=== PATIENT | male | born 1970 | race Caucasian/White ===

== ENCOUNTER 2017-01-26 08:13 | Emergency (ER) | payer MEDICARE ==
[2017-01-26 08:27] VITALS: O2SAT 92
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
[2017-01-26] MEDS ORDERED: TORAdol 30 mg Injection IV ONE (08:55)
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
[2017-01-26 09:58] LABS: VBG BASE EXCESS 1.5 (-2.0-2.0); VBG CARBOXYHEMOGLOBIN 1.6 % T HGB (0.0-6.9); VBG HCO3- 27.7 meq/L (22-28); VBG HEMOGLOBIN 16.3; VBG O2 SATURATION 75.1 (95-100); VBG pH 7.37 (7.32-7.42)
[2017-01-26] MEDS ORDERED: TORAdol 30 mg Injection ONE (10:00)
[2017-01-26 10:06] VITALS: BP 111/72; PULSE 103
[2017-01-26 10:10] LABS: BASOPHIL % 0.3 % (0.0-0.4); Eosinophil % 5.6 % (0.00-5.0); Granulocytes % 60.5 % (36.0-66.0); Lymphocytes % 27.1 % (24.0-44.0); Mean Cell Volume 84.4 fl (78-100); Mean Corpuscular Hemoglobin 28.4 pg (26-32); Mean Platelet Volume 11.2 fl (6-9.5); Monocytes % 6.5 % (0.0-12.0); Platelet Count 253 K/mm3 (150-450); Red Cell Distribution Width 13.4 % (11.5-14.0); White Blood Count 11.5 K/mm3 (4.0-10.5)
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
[2017-01-26 10:28] LABS: INR 0.88 (0.8-3.0); PROTIME 9.9 SECONDS (8.83-12.87)
[2017-01-26 10:39] LABS: ETHYL ALCOHOL 0.199 % (0.00-0.01)
[2017-01-26 10:40] LABS: ALBUMIN 4.2 g/dL (3.4-5.0); ALKALINE PHOSPHATASE 140 U/L (46-116); ANION GAP 15.3 MEQ/L (5-15); BLOOD UREA NITROGEN 10 mg/dL (9-20); CHLORIDE 101 mEq/L (98-107); Carbon Dioxide 28.8 mEq/L (21-32); Glucose 104 MG/DL (70-110); Potassium 3.8 mEq/L (3.5-5.1); SGOT/AST 62 U/L (15-37); SGPT/ALT 52 U/L (12-78); SODIUM 141 mEq/L (136-145); Total Protein 8.2 gm/dL (6.4-8.2)
== END 2017-01-26 10:25 | disposition left against medical advice (07) ==
LOC: ED 08:13
DX: S70.11XA Contusion of right thigh, initial encounter (principal); V27.0XXA Motorcycle driver injured in collision with fixed or stationary object in nontraffic accident, initial encounter; M79.651 Pain in right thigh; M79.671 Pain in right foot; Z79.899 Other long term (current) drug therapy
CPT/HCPCS: 96374; 99284; 36000; 85610; 85730; 36415; 82550; 85025; 80053; 71010; 73630; 73590; 73552; 70450; 72125; 82805; G0481; J1885

== ENCOUNTER 2017-01-28 18:47 | Emergency (ER) | payer MEDICARE ==
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
[2017-01-28] MEDS ORDERED: Adacel Vial IM ONE (19:16)
[2017-01-28] MEDS: Adacel Vial IM ONE ×2 (19:18→19:21)
[2017-01-28 19:39] LABS: BASOPHIL % 0.3 % (0.0-0.4); Eosinophil % 5.5 % (0.00-5.0); Granulocytes % 68.4 % (36.0-66.0); Lymphocytes % 20.4 % (24.0-44.0); Mean Cell Volume 84.2 fl (78-100); Mean Corpuscular Hemoglobin 28.5 pg (26-32); Mean Platelet Volume 11.2 fl (6-9.5); Monocytes % 5.4 % (0.0-12.0); Platelet Count 222 K/mm3 (150-450); Red Blood Count 5.26 M/mm3 (4.1-5.6); Red Cell Distribution Width 13.5 % (11.5-14.0); White Blood Count 9.8 K/mm3 (4.0-10.5)
[2017-01-28 19:56] LABS: ETHYL ALCOHOL 0.172 % (0.00-0.01)
[2017-01-28 19:57] LABS: ALBUMIN 3.9 g/dL (3.4-5.0); ALKALINE PHOSPHATASE 126 U/L (46-116); ANION GAP 17.4 MEQ/L (5-15); BLOOD UREA NITROGEN 6 mg/dL (9-20); CHLORIDE 101 mEq/L (98-107); Carbon Dioxide 26.3 mEq/L (21-32); Glucose 103 MG/DL (70-110); Potassium 3.6 mEq/L (3.5-5.1); SGOT/AST 59 U/L (15-37); SGPT/ALT 66 U/L (12-78); SODIUM 141 mEq/L (136-145); Total Protein 7.6 gm/dL (6.4-8.2)
[2017-01-28 19:59] LABS: ACETAMINOPHEN < 2.0 ug/ml (10-30)
[2017-01-28 21:09] VITALS: O2SAT 97
[2017-01-28] MEDS ORDERED: BACIGUENT PACKET ONE (21:12)
[2017-01-28 21:24] VITALS: BP 150/88; PULSE 88
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
== END 2017-01-28 21:24 | disposition home or self-care (01) ==
LOC: ED 18:47
DX: F10.920 Alcohol use, unspecified with intoxication, uncomplicated (principal); S60.511A Abrasion of right hand, initial encounter; S80.11XD Contusion of right lower leg, subsequent encounter; Z79.899 Other long term (current) drug therapy
CPT/HCPCS: 93041; 99283; 36415; 83735; 80307 ×2; 85025; 80053; 73130; G0481 ×2; 90715; 99284; A9270-GY

== ENCOUNTER 2017-01-29 21:58 | Emergency (ER) | payer MEDICARE ==
[2017-01-29] MEDS ORDERED: BABY ASPIRIN 81 MG CHEW PO ONE (22:06)
[2017-01-29] MEDS ORDERED: Nitrostat 0.4 MG (ED) SL ONE ×2 (22:06→22:34)
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
[2017-01-29] MEDS ORDERED: Sodium Chloride 0.9% 1000 ML 1,000 ML IV SCH (22:15)
[2017-01-29 22:28] LABS: BASOPHIL % 0.4 % (0.0-0.4); Eosinophil % 4.5 % (0.00-5.0); Granulocytes % 61.9 % (36.0-66.0); Lymphocytes % 26.8 % (24.0-44.0); Mean Cell Volume 84.9 fl (78-100); Mean Corpuscular Hemoglobin 28.9 pg (26-32); Mean Platelet Volume 10.6 fl (6-9.5); Monocytes % 6.4 % (0.0-12.0); Platelet Count 185 K/mm3 (150-450); Red Blood Count 4.85 M/mm3 (4.1-5.6); Red Cell Distribution Width 13.6 % (11.5-14.0); White Blood Count 10.4 K/mm3 (4.0-10.5)
[2017-01-29] MEDS ORDERED: BABY ASPIRIN 81 MG CHEW ONE (22:33)
[2017-01-29] MEDS ORDERED: Sodium Chloride 0.9% 1000 ML 1,000 ML ONE (22:34)
[2017-01-29 22:47] LABS: INR 0.91 (0.8-3.0); PROTIME 10.3 SECONDS (8.83-12.87)
[2017-01-29 22:50] LABS: PTT 21.6 SECONDS (24.1-36.1)
[2017-01-29 23:02] LABS: ALBUMIN 3.6 g/dL (3.4-5.0); ALKALINE PHOSPHATASE 109 U/L (46-116); ANION GAP 14.4 MEQ/L (5-15); BLOOD UREA NITROGEN 8 mg/dL (9-20); CHLORIDE 101 mEq/L (98-107); Carbon Dioxide 27.1 mEq/L (21-32); Glucose 114 MG/DL (70-110); LIPASE 111 U/L (73-393); MAGNESIUM 1.6 mg/dL (1.8-2.4); Potassium 3.8 mEq/L (3.5-5.1); SGOT/AST 43 U/L (15-37); SGPT/ALT 56 U/L (12-78); SODIUM 139 mEq/L (136-145); Total Protein 6.9 gm/dL (6.4-8.2)
[2017-01-29 23:24] LABS: ADD URINE CULTURE? NO (NO); Bilirubin NEGATIVE (NEGATIVE); Blood NEGATIVE Ery/ul (0-5); COMPLETE URINE MICROSCOPIC? NO; Collection Type CLEAN CATCH; Glucose NEGATIVE (NEGATIVE); Leukocyte Esterase NEGATIVE (NEGATIVE)
[2017-01-29] MEDS ORDERED: Magnesium 1 Gm / 100 Ml D5W*** 100 ML IV ONE (23:40)
[2017-01-29] MEDS ORDERED: Heparin 5000 UNITS/0.5 ML (HIGH RISK MED) IV ONE (23:42)
[2017-01-29] MEDS ORDERED: Heparin 25,000 units/D5W 250ML PREMIX 25,000 UNITS/250 ML BAG IV SCH (23:45)
[2017-01-30] MEDS ORDERED: Phenergan 25 MG INJ IV ONE (00:13)
[2017-01-30] MEDS ORDERED: Hydromorphone 1 mg/ml Ampule IV ONE (00:13)
[2017-01-30 00:14] VITALS: O2SAT 95
[2017-01-30] MEDS ORDERED: Heparin 5000 UNITS/0.5 ML (HIGH RISK MED) ONE (00:17)
[2017-01-30] MEDS ORDERED: MAG-OX 400 ONE (00:17)
[2017-01-30] MEDS ORDERED: Hydromorphone 1 mg/ml Ampule ONE (00:17)
[2017-01-30] MEDS ORDERED: Magnesium 1 Gm / 100 Ml D5W*** 100 ML IV ONE (00:18)
[2017-01-30] MEDS ORDERED: Phenergan 25 MG INJ ONE (00:23)
[2017-01-30 00:52] VITALS: BP 137/91; PULSE 106
--- NOTE | 2017-01-30 08:03 | XRAY ---
Indication: Pain. Comparison: January 26, 2017. Portable apical lordotic chest again demonstrates normal heart and lungs. Bony thorax intact. No new/acute findings.
--- NOTE | 2017-01-30 08:06 | XRAY ---
Indication: Right lower extremity edema. Two-dimensional sonogram and color Doppler imaging of the major venous vessels of the right leg was performed. Comparison: January 18, 2014. There is now occluding deep vein thrombosis in the popliteal, posterior tibial, and peroneal veins. Remaining visualized common femoral, superficial femoral, and greater saphenous veins are patent. Impression: New occluding DVT in the popliteal, posterior tibial, and peroneal veins. Comment: Preliminary report was given.
[2017-01-30] MEDS ORDERED: MAG-OX 400 PO SCH (10:00)
== END 2017-01-30 01:35 | disposition short-term general hospital (02) ==
LOC: ED 21:58
DX: I82.401 Acute embolism and thrombosis of unspecified deep veins of right lower extremity (principal); R07.9 Chest pain, unspecified; R06.00 Dyspnea, unspecified; E83.42 Hypomagnesemia; I50.9 Heart failure, unspecified; I10 Essential (primary) hypertension; J44.9 Chronic obstructive pulmonary disease, unspecified; K21.9 Gastro-esophageal reflux disease without esophagitis; F41.9 Anxiety disorder, unspecified; F32.9 Major depressive disorder, single episode, unspecified; M79.89 Other specified soft tissue disorders; Z79.899 Other long term (current) drug therapy
CPT/HCPCS: 36000; 36415; 71010; 80053; 80307; 81002; 82150; 83690; 83735; 83880; 84484; 85025; 85610; 85730; 93005; 93041; 93971; 96360; 96361; 96365; 96367; 96374; 96375; 99285; J1170; J1644; J2550; J3475; A9270-GY

== ENCOUNTER 2017-05-27 16:24 | Emergency (ER) | payer MEDICARE ==
[2017-05-27] MEDS ORDERED: Ativan 1 MG PO ONE (16:47)
[2017-05-27] MEDS ORDERED: VITAMIN B-1 100 MG PO ONE (16:47)
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
[2017-05-27 17:00] LABS: Mean Cell Volume 87.3 fl (78-100); Mean Corpuscular Hemoglobin 28.9 pg (26-32); Mean Platelet Volume 10.4 fl (6-9.5); Platelet Count 233 K/mm3 (150-450); Red Blood Count 4.71 M/mm3 (4.1-5.6); Red Cell Distribution Width 13.3 % (11.5-14.0); White Blood Count 10.7 K/mm3 (4.0-10.5)
[2017-05-27 17:07] LABS: BASOPHIL % 0.4 % (0.0-0.4); Eosinophil % 1.7 % (0.00-5.0); Granulocytes % 70.3 % (36.0-66.0); Lymphocytes % 21.8 % (24.0-44.0); Monocytes % 5.8 % (0.0-12.0)
[2017-05-27 17:14] LABS: ALBUMIN 4.2 g/dL (3.4-5.0); ALKALINE PHOSPHATASE 80 U/L (46-116); ANION GAP 12.9 MEQ/L (5-15); BLOOD UREA NITROGEN 12 mg/dL (9-20); CHLORIDE 97 mEq/L (98-107); Carbon Dioxide 27.5 mEq/L (21-32); ETHYL ALCOHOL < 0.010 % (0.00-0.01); Glucose 121 MG/DL (70-110); Potassium 4.1 mEq/L (3.5-5.1); SGOT/AST 30 U/L (15-37); SGPT/ALT 41 U/L (12-78); SODIUM 133 mEq/L (136-145); Total Protein 7.5 gm/dL (6.4-8.2)
[2017-05-27 17:15] LABS: ACETAMINOPHEN < 2.0 ug/ml (10-30)
[2017-05-27] MEDS ORDERED: Ativan 1 MG ONE (17:16)
[2017-05-27 23:40] VITALS: BP 114/82; PULSE 82; O2SAT 97
== END 2017-05-27 23:40 ==
LOC: ED 16:24
DX: F32.9 Major depressive disorder, single episode, unspecified (principal); R44.0 Auditory hallucinations; R44.1 Visual hallucinations; Z79.899 Other long term (current) drug therapy
CPT/HCPCS: 99285; 93005; 36415; 80178; 80307 ×2; 85025; 80053; G0481 ×2; 90791; 96372; Q3014; A9270-GY

== ENCOUNTER 2017-05-28 02:15 | Emergency (ER) | payer MEDICARE ==
[2017-05-28 02:33] VITALS: BP 145/90; PULSE 78; O2SAT 96
--- NOTE | 2017-05-28 02:48 | ERPHSYRPT ---
- History of Present Illness Time Seen by Provider: 05/28/17 02:40 Source: patient, police Exam Limitations: no limitations Patient Subjective Stated Complaint: states hearing voices. feels like he hears kids in the [place] talking. brought here by police.. he called them.. denies homicidal or suicidal thoughts. states needs to go somewhere Triage Nursing Assessment: alert and oreinted acting appropriately at this time.. alert and oriented x3. deneis any new physical complaints. staets wants help. cooperastive at this time. Physician History: 47 y/o male comes back to the ER with complaints of hearing voices thinking that someone is making noise upstairs. Upon arrival by police, there was no noise and no holes in the ceiling. Pt denies any suicide or homicidal ideation. Pt was seen in the ER yesterday and was discharged home after being evaluated by tele psych to be seen as an outpatient. Pt denies any alcohol or illicit drug use. Timing/Duration: today Severity of Symptoms-Max: none Severity of Symptoms-Current: none Associated Symptoms: denies symptoms Previous symptoms: same symptoms as today Allergies/Adverse Reactions: haloperidol [From Haldol] Allergy (Mild, Verified 05/28/17 02:33) haloperidol lactate [From Haldol] Allergy (Mild, Verified 05/28/17 02:33) Home Medications: Amitriptyline HCl 100 mg PO BID 05/15/15 [History] Atenolol 100 mg PO BID 01/26/17 [History] Apixaban [Eliquis] 5 mg PO BID 05/27/17 [History] Famotidine 20 mg [Pepcid 20 MG] 20 mg PO BID 05/27/17 [History] Fluticasone/Vilanterol [Breo Ellipta 100-25 Mcg INH] 1 each IH DAILY 05/27/17 [ History] Furosemide 80 mg PO BID 05/27/17 [History] Tizanidine HCl 4 mg [Zanaflex 4 MG] 4 mg PO HS 05/27/17 [History] Hx Tetanus, Diphtheria Vaccination/Date Given: Yes (UP TO DATE) Hx Influenza Vaccination/Date Given: No Hx Pneumococcal Vaccination/Date Given: No Immunizations Up to Date: Yes - Past Medical History Pertinent Past Medical History: Yes Neurological History: No Pertinent History ENT History: No Pertinent History Cardiac History: Arrhythmia Respiratory History: CHF, COPD Endocrine Medical History: No Pertinent History, Diabetes Type II Musculoskeletal History: Arthritis, Fractures GI Medical History: GERD History: No Pertinent History Psycho-Social History: Anxiety, Depression Other Medical History: chronic back amnd neck pain - Past Surgical History Past Surgical History: Yes Neuro Surgical History: No Pertinent History Cardiac: No Pertinent History Respiratory: No Pertinent History Gastrointestinal: No Pertinent History Genitourinary: No Pertinent History Musculoskeletal: Orthopedic Surgery Male Surgical History: No Pertinent History Other Surgical History: neck surgery - Social History Smoking Status: Never smoker How long have you smoked: 18 YEARS Exposure to second hand smoke: No Drug Use: marijuana Patient Lives Alone: Yes - Review of Systems Constitutional: No Fever, No Chills Eyes: No Symptoms Ears, Nose, & Throat: No Symptoms Respiratory: No Cough, No Dyspnea Cardiac: No Chest Pain, No Edema, No Syncope Abdominal/Gastrointestinal: No Abdominal Pain, No Nausea, No Vomiting, No Diarrhea Genitourinary Symptoms: No Dysuria Musculoskeletal: No Back Pain, No Neck Pain Skin: No Rash Neurological: No Dizziness, No Focal Weakness, No Sensory Changes Psychological: No Symptoms, Anxiety, Hallucinations, No Depression, No Suicidal Ideations, No Homicidal Ideations Endocrine: No Symptoms All Other Systems: Reviewed and Negative - Nursing Vital Signs Nursing Vital Signs: Initial Vital Signs Temperature 98.6 F 05/28/17 02:19 Pulse Rate 78 05/28/17 02:19 Respiratory Rate 18 05/28/17 02:19 Blood Pressure 145/90 05/28/17 02:19 O2 Sat by Pulse Oximetry 96 05/28/17 02:19 Pain Scale Pain Intensity 7 - Physical Exam General Appearance: anxiety, obese Eyes, Ears, Nose, Throat Exam: normal ENT inspection, moist mucous membranes Neck Exam: normal inspection, non-tender, supple Respiratory Exam: normal breath sounds, lungs clear, No respiratory distress Cardiovascular Exam: regular rate/rhythm, No edema Gastrointestinal/Abdominal Exam: soft, No tenderness, No distention Extremities Exam: normal inspection, normal range of motion, No evidence of injury, No edema Current Suicidality: denies suicide plan Neurological Exam: alert, school lunch manager II-XII nml as tested, oriented x 3, anxious Appearance: disheveled Thoughts/Hallucinations: auditory hallucinations Skin Exam: normal color, warm, dry, No rash SpO2: 96 Oxygen Delivery: Room Air - Course Nursing assessment & vital signs reviewed: Yes - Progress Progress: improved Progress Note: 05/28/17 03:21 Pt wants to go home and has follow up as an outpatient in the morning. Pt has no suicidal or homicidal ideation. - Departure Time of Disposition: 03:22 Departure Disposition: Home Clinical Impression: Hallucinations Condition: Stable Critical Care Time: No Referrals: JOVANY CABEZAS MD [Primary Care Provider] - Instructions: Depression -- Adult Additional Instructions: Follow up with your primary care doctor in the morning.
== END 2017-05-28 03:30 | disposition home or self-care (01) ==
LOC: ED 02:15
DX: R44.3 Hallucinations, unspecified (principal)
CPT/HCPCS: 99283

== ENCOUNTER 2019-06-08 19:08 | Inpatient (IN) | payer MEDICARE, OTHER ==
[2019-06-08] MEDS ORDERED: Lasix 40 MG/4 ML IV ONE (19:18)
[2019-06-08] MEDS ORDERED: Nitrostat 0.4 MG (ED) SL ONE (19:18)
[2019-06-08] MEDS ORDERED: BABY ASPIRIN 81 MG CHEW PO ONE (19:18)
--- NOTE | 2019-06-08 19:27 | ERPHSYRPT ---
- History of Present Illness Time Seen by Provider: 06/08/19 19:22 Historian: patient, family, EMS Exam Limitations: no limitations Physician History: pt developed chest pain and shortness of breath today and came in - pt of in for cardiac, on meds for chronic CHF - no stents or bypass in past - no fever, no cough, Timing/Duration: today Activities at Onset: none Quality: burning, fullness, pressure Location: substernal Chest Pain Radiation: no radiation Severity of Pain-Max: moderate Severity of Pain-Current: mild Associated Symptoms: shortness of breath Prior Chest Pain/Cardiac Workup: recently seen/treated Nitro Today/Relief: 0.4 mg x 1, provided by EMS, mild relief Aspirin Treatment Today: 81 mg x 4, provided by EMS Allergies/Adverse Reactions: haloperidol [From Haldol] Allergy (Mild, Verified 06/08/19 19:37) haloperidol lactate [From Haldol] Allergy (Mild, Verified 06/08/19 19:37) Home Medications: Atenolol 100 mg PO BID 01/26/17 [History] Famotidine 20 mg [Pepcid 20 MG] 20 mg PO BID 05/27/17 [History] Fluticasone/Vilanterol [Breo Ellipta 100-25 Mcg INH] 1 each IH DAILY 05/27/17 [ History] Furosemide 20 mg PO DAILY 05/27/17 [History] Tizanidine HCl 4 mg [Zanaflex 4 MG] 4 mg PO HS 05/27/17 [History] Albuterol Sulfate [Proair Hfa] 2 puffs PO BID 06/08/19 [History] Clonazepam [Klonopin] 0.5 mg PO BID 06/08/19 [History] Fluoxetine HCl [Prozac] 80 mg PO BID 06/08/19 [History] Gabapentin 800 mg PO TID 06/08/19 [History] OLANZapine [Zyprexa] 20 mg PO BID 06/08/19 [History] Hx Tetanus, Diphtheria Vaccination/Date Given: Yes (UP TO DATE) Hx Influenza Vaccination/Date Given: No Hx Pneumococcal Vaccination/Date Given: No - Review of Systems Constitutional: No Fever, No Chills Eyes: No Symptoms Ears, Nose, & Throat: No Symptoms Respiratory: Dyspnea, No Cough Cardiac: Chest Pain, No Edema, No Syncope Abdominal/Gastrointestinal: No Abdominal Pain, No Nausea, No Vomiting, No Diarrhea Genitourinary Symptoms: No Dysuria Musculoskeletal: No Back Pain, No Neck Pain Skin: No Rash Neurological: No Dizziness, No Focal Weakness, No Sensory Changes Psychological: No Symptoms Endocrine: No Symptoms All Other Systems: Reviewed and Negative - Past Medical History Pertinent Past Medical History: Yes Neurological History: No Pertinent History ENT History: No Pertinent History Cardiac History: Arrhythmia Respiratory History: CHF, COPD Endocrine Medical History: No Pertinent History, Diabetes Type II Musculoskeletal History: Arthritis, Fractures GI Medical History: GERD History: No Pertinent History Psycho-Social History: Anxiety, Depression Other Medical History: chronic back amnd neck pain - Past Surgical History Past Surgical History: Yes Neuro Surgical History: No Pertinent History Cardiac: No Pertinent History Respiratory: No Pertinent History Gastrointestinal: No Pertinent History Genitourinary: No Pertinent History Musculoskeletal: Orthopedic Surgery Male Surgical History: No Pertinent History Other Surgical History: neck surgery - Social History Smoking Status: Never smoker How long have you smoked: 18 YEARS Exposure to second hand smoke: No Drug Use: marijuana Patient Lives Alone: Yes - Nursing Vital Signs Nursing Vital Signs: Initial Vital Signs Temperature 98.5 F 06/08/19 19:21 Pulse Rate 78 06/08/19 19:21 Respiratory Rate 21 06/08/19 19:21 Blood Pressure 138/84 06/08/19 19:21 O2 Sat by Pulse Oximetry 95 06/08/19 19:21 Pain Scale Pain Intensity 8 - Physical Exam General Appearance: no apparent distress, alert Eye Exam: PERRL/EOMI, eyes nml inspection Ears, Nose, Throat Exam: normal ENT inspection, moist mucous membranes Neck Exam: normal inspection, non-tender, supple, full range of motion Respiratory Exam: crackles/rales, No respiratory distress Cardiovascular Exam: regular rate/rhythm, normal heart sounds Gastrointestinal/Abdomen Exam: soft, No tenderness, No mass Rectal Exam: deferred Back Exam: normal inspection, No CVA tenderness, No vertebral tenderness Extremity Exam: normal inspection, normal range of motion, pedal edema, swelling Neurologic Exam: alert, oriented x 3, cooperative, normal mood/affect, sensation nml, No motor deficits Skin Exam: normal color, warm, dry SpO2 Interpretation: borderline oxygenation SpO2: 95 O2 Delivery: Room Air - Course Nursing assessment & vital signs reviewed: Yes EKG Interpreted by Me: Sinus Rhythm, NORMAL AXIS, NORMAL INTERVALS, Non- specific ST Changes - CT Exams Chest CT Interpretation: Tele-radiologist Report, No PE, Other (lung nodules) Ordered Tests: Active Orders 24 hr Category Date Time Status Authorization Specialist STAT Care 06/08/19 19:19 Active EKG-ER Only STAT Care 06/08/19 19:18 Active IV Insertion STAT Care 06/08/19 19:18 Active Pulse Oximetry (ED) STAT Care 06/08/19 19:18 Active CHEST WITH CONTRAST [CT] Stat Exams 06/08/19 20:09 Taken AMYLASE Stat Lab 06/08/19 19:39 Completed CBC W DIFF Stat Lab 06/08/19 19:39 Completed CMP Stat Lab 06/08/19 19:39 Completed D-DIMER QUANTITATION Stat Lab 06/08/19 19:39 Completed LIPASE Stat Lab 06/08/19 19:39 Completed Lactic Acid Stat Lab 06/08/19 19:59 Completed MAGNESIUM Stat Lab 06/08/19 19:39 Completed Manual Differential NC Stat Lab 06/08/19 19:39 Completed NT PRO BNP Stat Lab 06/08/19 19:39 Completed TROPONIN Q3H Lab 06/08/19 19:39 Completed TROPONIN Q3H Lab 06/08/19 22:31 Completed TROPONIN Q3H Lab 06/09/19 01:30 Ordered TROPONIN Q3H Lab 06/09/19 04:30 Ordered TROPONIN Q3H Lab 06/09/19 07:30 Ordered Medication Summary Generic Name Dose Route Start Last Admin Trade Name Freq PRN Reason Stop Dose Admin Sodium Chloride 1,000 mls @ 50 mls/hr 06/08/19 19:30 06/08/19 19:57 Sodium Chloride 0.9% 1000 Ml IV 07/08/19 19:29 50 mls/hr .Q20H AMANDA Administration Discontinued Medications Generic Name Dose Route Start Last Admin Trade Name Freq PRN Reason Stop Dose Admin Aspirin 324 mg 06/08/19 19:18 06/08/19 20:02 Baby Aspirin 81 Mg Chew PO 06/08/19 19:19 Not Given STAT ONE Furosemide 40 mg 06/08/19 19:18 06/08/19 19:57 Lasix 40 Mg/4 Ml IV 06/08/19 19:19 40 mg STAT ONE Administration Furosemide Confirm 06/08/19 19:54 Lasix 40 Mg/4 Ml Administered 06/08/19 19:55 Dose 40 mg .ROUTE .STK-MED ONE Ceftriaxone Sodium/Dextrose 1 g in 50 mls @ 100 mls/hr 06/08/19 22:35 23:31 Rocephin 1 Gm-D5w 50 Ml Bag IV 06/08/19 23:04 Infused STAT STA Infusion Ceftriaxone Sodium/Dextrose Confirm 06/08/19 22:39 Rocephin 1 Gm-D5w 50 Ml Bag Administered 06/08/19 22:40 Dose 1 g in 50 mls @ ud IV .STK-MED ONE Morphine Sulfate 8 mg 06/08/19 20:11 06/08/19 20:27 Morphine Sulfate 10 Mg/Ml IV 06/08/19 20:12 8 mg STAT ONE Administration Morphine Sulfate Confirm 06/08/19 20:25 Morphine Sulfate 10 Mg/Ml Administered 06/08/19 20:26 Dose 10 mg .ROUTE .STK-MED ONE Nitroglycerin 0.4 mg 06/08/19 19:18 06/08/19 20:01 Nitrostat 0.4 Mg (Ed) SL 06/08/19 19:19 Not Given STAT ONE Ondansetron HCl 4 mg 06/08/19 20:12 06/08/19 20:27 Zofran 4 Mg/2 Ml Vial IV 06/08/19 20:13 4 mg STAT ONE Administration Ondansetron HCl Confirm 06/08/19 20:24 Zofran 4 Mg/2 Ml Vial Administered 06/08/19 20:25 Dose 4 mg .ROUTE .STK-MED ONE Lab/Rad Data: Laboratory Result Diagrams 06/08/19 19:39 06/08/19 19:39 Laboratory Results 06/08/19 06/08/19 06/08/19 Range/Units 22:31 19:59 19:39 WBC (4.0-10.5) K/mm3 RBC (4.1-5.6) M/mm3 Hgb (12.5-18.0) gm/dl Hct (42-50) % MCV (78-100) fl MCH (26-32) pg MCHC (32-36) g/dl RDW (11.5-14.0) % Plt Count (150-450) K/mm3 MPV (6-9.5) fl Segmented Neutrophils (36.-66.) % Lymphocytes (Manual) (24-44) % Monocytes (Manual) (0.0-12.0) % Eosinophils (Manual) (0.00-3.0) % Platelet Estimate (NORMAL) RBC Morphology D-Dimer (215-500) ng/mL Sodium (137-145) mmol/L Potassium (3.5-5.1) mmol/L Chloride (98-107) mmol/L Carbon Dioxide (22-30) mmol/L Anion Gap (5-15) MEQ/L BUN (9-20) mg/dL Creatinine (0.66-1.25) mg/dL Estimated GFR ML/MIN Glucose (74-106) mg/dL Lactic Acid 1.6 (0.4-2.0) Calcium (8.4-10.2) mg/dL Magnesium (1.6-2.3) mg/dL Total Bilirubin (0.2-1.3) mg/dL AST (17-59) U/L ALT (0-50) U/L Alkaline Phosphatase (38-126) U/L Troponin I < 0.012 < 0.012 (0.000-0.034) ng/mL NT-Pro-B Natriuret Pep (0-450) pg/mL Serum Total Protein (6.3-8.2) g/dL Albumin (3.5-5.0) g/dL Amylase (30-110) U/L Lipase (23-300) U/L 06/08/19 06/08/19 06/08/19 Range/Units 19:39 19:39 19:39 WBC 15.3 H (4.0-10.5) K/mm3 RBC 4.00 L (4.1-5.6) M/mm3 Hgb 11.4 L (12.5-18.0) gm/dl Hct 37.0 L (42-50) % MCV 92.5 (78-100) fl MCH 28.5 (26-32) pg MCHC 30.8 L (32-36) g/dl RDW 14.2 H (11.5-14.0) % Plt Count 222 (150-450) K/mm3 MPV 10.7 H (6-9.5) fl Segmented Neutrophils 79 H (36.-66.) % Lymphocytes (Manual) 11 L (24-44) % Monocytes (Manual) 4 (0.0-12.0) % Eosinophils (Manual) 6 H (0.00-3.0) % Platelet Estimate NORMAL (NORMAL) RBC Morphology NORMAL D-Dimer 745 H* (215-500) ng/mL Sodium 142 (137-145) mmol/L Potassium 4.0 (3.5-5.1) mmol/L Chloride 101 (98-107) mmol/L Carbon Dioxide 33 H (22-30) mmol/L Anion Gap 12.9 (5-15) MEQ/L BUN 13 (9-20) mg/dL Creatinine 0.88 (0.66-1.25) mg/dL Estimated GFR > 60.0 ML/MIN Glucose 132 H (74-106) mg/dL Lactic Acid (0.4-2.0) Calcium 8.9 (8.4-10.2) mg/dL Magnesium 1.5 L (1.6-2.3) mg/dL Total Bilirubin 0.30 (0.2-1.3) mg/dL AST 28 (17-59) U/L ALT 34 (0-50) U/L Alkaline Phosphatase 73 (38-126) U/L Troponin I (0.000-0.034) ng/mL NT-Pro-B Natriuret Pep 228 (0-450) pg/mL Serum Total Protein 7.0 (6.3-8.2) g/dL Albumin 4.0 (3.5-5.0) g/dL Amylase 44 (30-110) U/L Lipase 145 (23-300) U/L - Progress Progress: improved, re-examined Air Movement: good Progress Note: 06/08/19 22:34 pt advised to f/u lung nodules with PCP 06/08/19 23:35 pt still with intermit CP mild and discussed with Maximo Lopez who advises obs here , given prior no indications for stents of CABG in past , but need to still rule out ACS with trops - discussed with Dr. Quinn who agrees; pat also desires this Blood Culture(s) Obtained: No Antibiotics given: Yes Discussed with : Nataliia Will see patient in: hospital (observation) Counseled pt/family regarding: lab results, diagnosis, need for follow-up, rad results - Departure Departure Disposition: Observation Clinical Impression: Lung nodules, Chest pain, Hx of acute congestive heart failure, Acute exacerbation of chronic obstructive airways disease Condition: Good Critical Care Time: No Referrals: JOVANY CABEZAS MD [Primary Care Provider] -
[2019-06-08] MEDS ORDERED: Sodium Chloride 0.9% 1000 ML 1,000 ML IV SCH (19:30)
[2019-06-08 19:49] LABS: Hemoglobin 11.4 gm/dl (12.5-18.0); Mean Cell Volume 92.5 fl (78-100); Mean Corpuscular Hemoglobin 28.5 pg (26-32); Mean Corpuscular Hgb Concent. 30.8 g/dl (32-36); Mean Platelet Volume 10.7 fl (6-9.5); Platelet Count 222 K/mm3 (150-450); Red Cell Distribution Width 14.2 % (11.5-14.0); White Blood Count 15.3 K/mm3 (4.0-10.5)
[2019-06-08] MEDS ORDERED: Sodium Chloride 0.9% 1000 ML 1,000 ML ONE (19:54)
[2019-06-08] MEDS ORDERED: Lasix 40 MG/4 ML ONE (19:54)
[2019-06-08 20:09] LABS: ALKALINE PHOSPHATASE 73 U/L (38-126); AMYLASE 44 U/L (30-110); ANION GAP 12.9 MEQ/L (5-15); BLOOD UREA NITROGEN 13 mg/dL (9-20); CHLORIDE 101 mmol/L (98-107); Calcium 8.9 mg/dL (8.4-10.2); Carbon Dioxide 33 mmol/L (22-30); Creatinine 1 0.88 mg/dL (0.66-1.25); Glucose 132 mg/dL (74-106); LIPASE 145 U/L (23-300); MAGNESIUM 1.5 mg/dL (1.6-2.3); NT PRO BNP 228 pg/mL (0-450); SGOT/AST 28 U/L (17-59); SGPT/ALT 34 U/L (0-50); SODIUM 142 mmol/L (137-145)
[2019-06-08] MEDS ORDERED: MORPHINE SULFATE 10 MG/ML IV ONE ×2 (20:11→23:55)
[2019-06-08] MEDS ORDERED: Zofran 4 MG/2 ML VIAL IV ONE ×2 (20:12→23:55)
[2019-06-08 20:23] LABS: Eosinophil 6 % (0.00-3.0); Lymphocytes 11 % (24-44); Monocyte 4 % (0.0-12.0); Neutrophils 79 % (36.-66.); Total Cells Counted 100
[2019-06-08 20:24] LABS: Platelet Estimate NORMAL (NORMAL)
[2019-06-08] MEDS ORDERED: Zofran 4 MG/2 ML VIAL ONE (20:24)
[2019-06-08] MEDS ORDERED: MORPHINE SULFATE 10 MG/ML ONE (20:25)
[2019-06-08] MEDS ORDERED: ROCEPHIN 1 Gm-D5w 50 ml Bag** 1 G/50 ML IVPB IV STA (22:35)
[2019-06-08] MEDS ORDERED: ROCEPHIN 1 Gm-D5w 50 ml Bag** 1 G/50 ML IVPB IV ONE (22:39)
[2019-06-09] MEDS ORDERED: MORPHINE SULFATE 10 MG/ML ONE (00:18)
[2019-06-09] MEDS ORDERED: Senokot-S Tablet PO PRN (00:31)
[2019-06-09] MEDS ORDERED: Zofran 4 MG/2 ML VIAL IV PRN (00:31)
[2019-06-09] MEDS ORDERED: Nitrostat 0.4 MG Tablet SL PRN (00:31)
[2019-06-09] MEDS ORDERED: DUONEB 0.5-3 MG/3 ml Neb IH PRN (00:31)
[2019-06-09] MEDS ORDERED: MILK OF MAGNESIA 30 ML PO PRN (00:31)
[2019-06-09] MEDS ORDERED: MAALOX ES 30 ML UNIT DOSE PO PRN (00:31)
[2019-06-09] MEDS ORDERED: Sodium Chloride 0.9% 1000 ML 1,000 ML ONE (00:46)
[2019-06-09] MEDS: Sodium Chloride 0.9% 500 ML 500 ML IV SCH (00:50)
[2019-06-09] MEDS: TYLENOL 325 MG PO PRN ×2 (00:51→06:34)
[2019-06-09] MEDS: MORPHINE SULFATE 2 MG INJ IV PRN ×3 (01:52→22:53)
[2019-06-09 06:21] LABS: Risk Ratio 2.5
[2019-06-09] MEDS ORDERED: PROVENTIL COMMON CANISTER IH PRN (07:00)
--- NOTE | 2019-06-09 07:15 | XRAY ---
Indication: Chest pain, elevated d-dimer, nausea, and bilateral leg edema. Multiple contiguous axial images obtained through the chest using 80 cc Isovue 370 contrast and PE protocol. Comparison: None There is suboptimal opacification of the pulmonary arteries limiting evaluation of the distal lobar and segmental branches. No central pulmonary embolus. Heart is not enlarged. Aorta is normal in course and caliber. No pathologic mediastinal/hilar lymphadenopathy. Lungs demonstrates mild bilateral dependent atelectasis. Right lower lobe demonstrates multiple subcentimeter indeterminant noncalcified nodules, largest 9 mm. No infiltrate or effusion. Bony thorax intact with mild degenerative changes throughout the spine. Limited upper abdomen demonstrates mild diffuse fatty liver and 14.9 cm splenomegaly. Impression: 1. Pulmonary embolus evaluation limited due to suboptimal contrast opacification. No large central pulmonary embolus. 2. Multiple indeterminant right lower lobe subcentimeter noncalcified nodules. Comparison studies would be of benefit if performed elsewhere. If not, recommend follow-up per Fleischner guidelines. 3. Incidental fatty liver and splenomegaly. Comment: Preliminary interpretation was made by C. No critical discrepancy. CTDI 31.86
[2019-06-09] MEDS: Advair Hfa 115/21 Common canister IH SCH ×2 (09:46→19:46)
[2019-06-09] MEDS ORDERED: Aplisol ID ONE (10:21)
[2019-06-09] MEDS ORDERED: ENOXAPARIN SODIUM SQ ONE (10:22)
[2019-06-09] MEDS: ROCEPHIN 1 Gm-D5w 50 ml Bag** 1 G/50 ML IVPB IV SCH (10:26)
[2019-06-09] MEDS: Lasix 20 MG/2 ML IV SCH ×2 (10:26→17:55)
[2019-06-09] MEDS: solu-MEDROL 40 MG IV SCH ×2 (10:26→22:18)
[2019-06-09] MEDS: Ecotrin 325 MG PO SCH (10:27)
[2019-06-09 11:04] LABS: Iron 60 ug/dL (49-181); Iron Saturation 15 % (20-39); TIBC 407 ug/dL (261-497)
[2019-06-09] MEDS ORDERED: Magnesium Sulfate 1 GM/2 ML VIAL IV ONE (11:30)
[2019-06-09] MEDS ORDERED: zyPREXA 5MG TABLET PO PRN (11:39)
[2019-06-09] MEDS ORDERED: Neurontin 400 MG PO SCH (11:45)
[2019-06-09] MEDS: Magnesium 1 Gm / 100 Ml D5W*** 100 ML IV SCH ×2 (12:47→14:52)
[2019-06-09] MEDS: Prozac 20 MG PO SCH (12:48)
[2019-06-09] MEDS: TENORMIN 50 MG PO SCH ×2 (12:48→22:15)
[2019-06-09] MEDS: zyPREXA 5MG TABLET PO SCH (12:50)
[2019-06-09] MEDS: Klonopin 0.5 MG PO SCH ×2 (12:51→22:17)
[2019-06-09] MEDS: Protonix 40MG Tablet PO SCH (12:51)
--- NOTE | 2019-06-09 13:34 | HP ---
HISTORY OF PRESENT ILLNESS: This is a 49 y/o patient who reports he is a patient of Dr. Vargas'mickie who presented to the Emergency Department. He reports he was having chest pain, shortness of breath as well as leg swelling. He takes his Lasix daily at home, but was still having increased swelling. He has a history of congestive heart failure and sees Dr. Amador for this. He reports having a heart cath 4-5 years ago, but no stents placed. He reports he doesn't have a nebulizer at home anymore. Doesn't wear O2 at home now, but used to in the past. He quit smoking 5-6 years ago. He follows with Dr. Mauro as well and has an upcoming appointment with him. He reports he was recently released from nursing home a month and a half ago after being there for about 2 years so he is reestablishing his care. REVIEW OF SYSTEMS: He denies fever. He reports some night sweats. No abdominal pain. He has had weight gain, nausea, vomiting, and dizziness yesterday. PAST MEDICAL HISTORY: Congestive heart failure, chronic obstructive pulmonary disease, borderline personality disorder, depression, degenerative disc disease of his back, history of a T1 fracture. PAST SURGICAL HISTORY: Neck surgery, oral surgery, history of epidurals. SOCIAL HISTORY: He lives alone. Reports he drinks alcohol, but not daily. Doesn't smoke. FAMILY HISTORY: His father is and from atrial fibrillation when he was 67. His mother is living and has lung cancer. CURRENT MEDICATIONS: Please see the home medication reconciliation form which I reviewed. ALLERGIES: HALOPERIDOL. PHYSICAL EXAMINATION: VITAL SIGNS: Temperature current 97.4, temperature maximum 98.5, heart rate 74, respiratory rate 18, BP 128/74, O2 saturation 92-94% on 3 liters nasal cannula, weight is 145.2 Kg. GENERAL: The patient is a pleasant, talkative man sitting up in bed in no acute distress wearing O2. CVS: He has a regular rate and rhythm. No murmurs, gallops, or rubs are appreciated. CHEST: Clear to auscultation bilaterally. No crackles or wheezes. ABDOMEN: Soft, nontender, nondistended with normal bowel sounds. EXTREMITIES: +2 edema to his shins bilaterally. No clubbing or cyanosis. SKIN: Warm, dry, and intact. LABORATORY DATA: WBC 15.3, Hgb 11.4, platelets 222,000. D-dimer 745. Serial troponins have been negative. Hgb A1C 5.6. Fasting lipid panel with an LDL of 100, HDL 73, amylase and lipase were normal. Glucose 132, CO2 33. EKG was normal sinus rhythm, a rate of 65. No ST or T wave changes, a normal EKG. Chest CT was read as no central pulmonary emboli and there were several small nodules in the right lower lobe. Please see the radiologist's dictation for the full report. ASSESSMENT AND PLAN: 1. CHEST PAIN. He has ruled out for an acute myocardial infarction. Will continue with observation and aspirin. 2. CONGESTIVE HEART FAILURE EXACERBATION. Will order an echo and continue with IV Lasix bid, accurate ins and outs, and daily weights. He has a entry level business analyst that he follows up with as an outpatient. 3. ANEMIA. Will check his iron studies and vitamin B12. 4. DEPRESSION. Will continue his home medications. 5. CHRONIC OBSTRUCTIVE PULMONARY DISEASE EXACERBATION. He is on IV steroids as well as ceftriaxone and has breathing treatments ordered. Will continue with this. 6. DEEP VEIN THROMBOSIS PROPHYLAXIS. Will start him on Lovenox. 7. LUNG NODULES. He will need to follow-up with his senior compliance analyst and primary care doctor as an outpatient and will have TB test placed.
[2019-06-09] MEDS: NEURONTIN 300 MG PO SCH ×2 (14:51→22:15)
[2019-06-09] MEDS: Zanaflex 4 MG PO SCH ×2 (14:51→22:15)
[2019-06-09] MEDS ORDERED: ATENOLOL 100 MG PO SCH (22:00)
[2019-06-09] MEDS: Pepcid 20 MG PO SCH (22:17)
[2019-06-09] MEDS: NovoLIN R SQ PRN (22:18)
[2019-06-10 06:32] LABS: Hematocrit 42.1 % (42-50); Hemoglobin 12.8 gm/dl (12.5-18.0); Mean Cell Volume 93.6 fl (78-100); Mean Corpuscular Hemoglobin 28.4 pg (26-32); Mean Corpuscular Hgb Concent. 30.4 g/dl (32-36); Platelet Count 256 K/mm3 (150-450); Red Cell Distribution Width 14.1 % (11.5-14.0); White Blood Count 19.6 K/mm3 (4.0-10.5)
[2019-06-10] MEDS: MORPHINE SULFATE 2 MG INJ IV PRN ×3 (06:46→18:42)
[2019-06-10 06:50] LABS: ANION GAP 15.3 MEQ/L (5-15); BLOOD UREA NITROGEN 16 mg/dL (9-20); CHLORIDE 98 mmol/L (98-107); Calcium 9.1 mg/dL (8.4-10.2); Carbon Dioxide 34 mmol/L (22-30); Creatinine 1 0.73 mg/dL (0.66-1.25); Glucose 158 mg/dL (74-106); Potassium 4.8 mmol/L (3.5-5.1); SODIUM 143 mmol/L (137-145)
[2019-06-10 07:39] LABS: BAND 1 % (0.0-2.0); Lymphocytes 11 % (24-44); Monocyte 2 % (0.0-12.0); Neutrophils 86 % (36.-66.); Platelet Estimate NORMAL (NORMAL); Total Cells Counted 100; Toxic Granulation 1+
[2019-06-10] MEDS: NovoLIN R SQ PRN ×4 (08:14→21:28)
[2019-06-10] MEDS: DUONEB 0.5-3 MG/3 ml Neb IH PRN (09:56)
[2019-06-10] MEDS: Advair Hfa 115/21 Common canister IH SCH ×2 (09:57→19:08)
[2019-06-10] MEDS ORDERED: Prozac 20 MG PO SCH (10:00)
[2019-06-10] MEDS: ROCEPHIN 1 Gm-D5w 50 ml Bag** 1 G/50 ML IVPB IV SCH (10:13)
[2019-06-10] MEDS: Prozac 20 MG PO SCH (10:17)
[2019-06-10] MEDS: Ecotrin 325 MG PO SCH (10:18)
[2019-06-10] MEDS: ENOXAPARIN SODIUM SQ SCH (10:19)
[2019-06-10] MEDS: Lasix 20 MG/2 ML IV SCH ×2 (10:20→18:41)
[2019-06-10] MEDS: NEURONTIN 300 MG PO SCH ×3 (10:24→21:26)
[2019-06-10] MEDS: TENORMIN 50 MG PO SCH ×2 (10:24→21:27)
[2019-06-10] MEDS: Zanaflex 4 MG PO SCH ×3 (10:25→21:26)
[2019-06-10] MEDS: Pepcid 20 MG PO SCH ×2 (10:26→21:27)
[2019-06-10] MEDS: Klonopin 0.5 MG PO SCH ×2 (10:26→21:26)
[2019-06-10] MEDS: zyPREXA 5MG TABLET PO SCH (10:27)
[2019-06-10] MEDS: Protonix 40MG Tablet PO SCH (10:28)
[2019-06-10] MEDS: Sodium Chloride 0.9% 10 ML FLUSH Syringe IV SCH ×2 (14:19→21:27)
[2019-06-10] MEDS: TYLENOL 325 MG PO PRN (21:26)
[2019-06-11] MEDS: Sodium Chloride 0.9% 10 ML FLUSH Syringe IV SCH ×3 (05:26→20:19)
[2019-06-11 06:30] LABS: Hematocrit 38.2 % (42-50); Hemoglobin 11.7 gm/dl (12.5-18.0); Mean Cell Volume 94.3 fl (78-100); Mean Corpuscular Hemoglobin 28.9 pg (26-32); Mean Corpuscular Hgb Concent. 30.6 g/dl (32-36); Mean Platelet Volume 10.6 fl (6-9.5); Platelet Count 231 K/mm3 (150-450); Red Blood Count 4.05 M/mm3 (4.1-5.6); Red Cell Distribution Width 14.4 % (11.5-14.0); White Blood Count 16.6 K/mm3 (4.0-10.5)
[2019-06-11] MEDS: Sodium Chloride 0.9% 500 ML 500 ML IV SCH (08:08)
[2019-06-11] MEDS: Prozac 20 MG PO SCH (09:13)
[2019-06-11] MEDS: Zanaflex 4 MG PO SCH ×3 (09:13→20:12)
[2019-06-11] MEDS: ENOXAPARIN SODIUM SQ SCH (09:13)
[2019-06-11] MEDS: zyPREXA 5MG TABLET PO SCH (09:14)
[2019-06-11] MEDS: TENORMIN 50 MG PO SCH ×2 (09:14→20:11)
[2019-06-11] MEDS: Protonix 40MG Tablet PO SCH (09:14)
[2019-06-11] MEDS: Pepcid 20 MG PO SCH ×2 (09:14→20:11)
[2019-06-11] MEDS: NEURONTIN 300 MG PO SCH ×3 (09:14→20:11)
[2019-06-11] MEDS: Klonopin 0.5 MG PO SCH ×2 (09:14→20:10)
[2019-06-11] MEDS: Ecotrin 325 MG PO SCH (09:15)
[2019-06-11] MEDS: ROCEPHIN 1 Gm-D5w 50 ml Bag** 1 G/50 ML IVPB IV SCH (09:15)
[2019-06-11] MEDS: Lasix 20 MG/2 ML IV SCH ×2 (09:15→16:22)
[2019-06-11] MEDS: TYLENOL 325 MG PO PRN ×2 (09:25→20:15)
[2019-06-11] MEDS: Advair Hfa 115/21 Common canister IH SCH ×2 (10:00→18:52)
[2019-06-11] MEDS: DUONEB 0.5-3 MG/3 ml Neb IH PRN (15:50)
[2019-06-11] MEDS: MORPHINE SULFATE 2 MG INJ IV PRN ×2 (16:21→20:07)
[2019-06-12] MEDS: Sodium Chloride 0.9% 10 ML FLUSH Syringe IV SCH (02:16)
[2019-06-12] MEDS: MORPHINE SULFATE 2 MG INJ IV PRN ×3 (02:16→15:13)
[2019-06-12 05:20] LABS: Hematocrit 39.1 % (42-50); Mean Corpuscular Hemoglobin 28.8 pg (26-32); Mean Corpuscular Hgb Concent. 30.7 g/dl (32-36); Mean Platelet Volume 10.7 fl (6-9.5); Platelet Count 212 K/mm3 (150-450); Red Blood Count 4.16 M/mm3 (4.1-5.6); Red Cell Distribution Width 14.3 % (11.5-14.0); White Blood Count 11.6 K/mm3 (4.0-10.5)
[2019-06-12 05:36] LABS: ALBUMIN 4.1 g/dL (3.5-5.0); ALKALINE PHOSPHATASE 69 U/L (38-126); ANION GAP 9.6 MEQ/L (5-15); BLOOD UREA NITROGEN 22 mg/dL (9-20); CHLORIDE 98 mmol/L (98-107); Calcium 8.6 mg/dL (8.4-10.2); Carbon Dioxide 38 mmol/L (22-30); Creatinine 1 0.89 mg/dL (0.66-1.25); Glucose 96 mg/dL (74-106); Potassium 4.3 mmol/L (3.5-5.1); SGOT/AST 20 U/L (17-59); SGPT/ALT 26 U/L (0-50); SODIUM 141 mmol/L (137-145); Total Protein 7.3 g/dL (6.3-8.2)
[2019-06-12] MEDS: Advair Hfa 115/21 Common canister IH SCH (06:56)
--- NOTE | 2019-06-12 07:53 | HP ---
CHIEF COMPLAINT: Shortness of breath and leg swelling. HISTORY OF PRESENT ILLNESS: The patient is a 49 year-old white male patient who reports with increasing problems with edema of his legs. He has been more short of breath recently. He presented to the emergency room with the above complaints. He was then subsequently admitted to the hospital with the diagnosis of heart failure and lymphedema. The patient does have a spud driller and he sees Dr. Amador and he also sees a lung specialist. The patient has been incarcerated recently and only has been released about a month and a half ago. Since that time he has not had an opportunity to follow up with his regular doctors. PAST MEDICAL/SURGICAL HISTORY: Significant for diabetes mellitus type 2, anxiety, depression. He has congestive heart failure, chronic obstructive pulmonary disease, arrhythmia issues. MEDICATIONS: At home are atenolol 100 mg b.i.d., Pepcid 20 mg daily, Breo Ellipta, Lasix 20 mg daily, Zanaflex 4 mg at night, Albuterol 2 puffs b.i.d. PRN, clonazepam 0.5 mg b.i.d., fluoxetine 80 mg b.i.d., gabapentin 800 mg t.i.d., olanzapine 20 mg b.i.d. ALLERGIES: HALDOL. PHYSICAL EXAMINATION: The patient's vitals on admission showed temperature 98.5F, pulse 78, respiratory rate 21 and blood pressure 138/94. O2 saturation 95%. HEENT: Normocephalic, atraumatic. Pupils equal round reactive to light. Extraocular movements intact. Oropharynx is pink and moist. NECK: Supple. No lymphadenopathy, thyromegaly or JVD. CHEST: Clear to auscultation. HEART: Regular rate and rhythm. ABDOMEN: Protuberant. EXTREMITIES: Currently the edema has markedly decreased according to the patient after the Lasix. NEUROLOGIC: The patient is alert and oriented x3 with no focal deficits are noted. LAB DATA AND TESTS: The patient's laboratory studies have shown a white count initially 15,000 which increased to 19,600 by the next morning. He has been placed on IV Rocephin empirically. His hemoglobin was less than 4, PLT count 222,000. Lactic acid 1.6. Sugar 1 32, BUN 13, creatinine 0.88. Electrolytes were essentially normal. Liver enzymes were normal. Pro-BNP was normal. Amylase was normal. D-dimer was slightly elevated at 745. Troponin was less than 0.012 on several occasions. The patient's differential showed 79 neutrophils, 11 lymphocytes. His lipid panel showed HDL 73 and LDL 100. Hemoglobin A1C was 5.64. Total iron was 407. X-rays: Pulmonary embolus evaluation was limited but no large pulmonary embolism was noted. Multiple indeterminant right lower lobe subcentimeter noncalcified nodules are noted and have been followed by his patient access specialist in the past. The patient had EKG show sinus rhythm. ASSESSMENT: A patient with chronic lymphedema that improved with IV Lasix. Echocardiogram has been performed. He has ruled out for myocardial infarction. However, his white count has increased to 19,000. He has been placed empirically on Rocephin. We will recheck his blood work in the morning. There was no obvious source of infection that we could see at this time. Specifically no cellulitis or skin breakage areas that we have noted.
[2019-06-12] MEDS: ROCEPHIN 1 Gm-D5w 50 ml Bag** 1 G/50 ML IVPB IV SCH (10:17)
[2019-06-12] MEDS: Prozac 20 MG PO SCH (10:17)
[2019-06-12] MEDS: TENORMIN 50 MG PO SCH (10:17)
[2019-06-12] MEDS: Zanaflex 4 MG PO SCH ×2 (10:17→14:44)
[2019-06-12] MEDS: Protonix 40MG Tablet PO SCH (10:17)
[2019-06-12] MEDS: zyPREXA 5MG TABLET PO SCH (10:18)
[2019-06-12] MEDS: NEURONTIN 300 MG PO SCH ×2 (10:18→14:44)
[2019-06-12] MEDS: Ecotrin 325 MG PO SCH (10:18)
[2019-06-12] MEDS: Lasix 20 MG/2 ML IV SCH (10:19)
[2019-06-12] MEDS: Klonopin 0.5 MG PO SCH (10:19)
[2019-06-12] MEDS: Pepcid 20 MG PO SCH (10:19)
[2019-06-12] MEDS: ENOXAPARIN SODIUM SQ SCH (10:22)
--- NOTE | 2019-06-12 13:07 | PCM.DS ---
Discharge Summary Date of Admission: 06/09/19 10:19 Admitting Physician: JOVANY CABEZAS Primary Care Provider: JOVANY CABEZAS Allergies Allergies haloperidol [From Haldol] Allergy (Mild, Verified 06/09/19 01:03) haloperidol lactate [From Haldol] Allergy (Mild, Verified 06/09/19 01:03) Hospital Summary - Hospital Course Hospital Course: pt developed chest pain and shortness of breath today and came in - pt of in for cardiac, on meds for chronic CHF - no stents or bypass in past - no fever, no cough, Timing/Duration: today Activities at Onset: none Quality: burning, fullness, pressure Location: substernal Chest Pain Radiation: no radiation Severity of Pain-Max: moderate Severity of Pain-Current: mild Associated Symptoms: shortness of breath Prior Chest Pain/Cardiac Workup: recently seen/treated Nitro Today/Relief: 0.4 mg x 1, provided by EMS, mild relief Aspirin Treatment Today: 81 mg x 4, provided by EMS Chief Complaint Diagnosis R/o Chest pain, COPD Exac. Allergies Allergy/AdvReac Type Severity Reaction Status Date / Time haloperidol [From Haldol] Allergy Mild Verified 06/09/19 01:03 haloperidol lactate Allergy Mild Verified 06/09/19 01:03 [From Haldol] Vital Signs (Last 24 hours) Temp Pulse Resp BP BP Pulse Ox 06/12/19 11:34 99.0 F 83 26 H 129/64 96 06/12/19 10:17 78 115/67 06/12/19 08:00 23 06/12/19 07:42 98.0 F 78 23 115/67 97 06/12/19 06:59 78 18 94 L 06/12/19 05:56 98 06/12/19 04:00 97.9 F 67 18 122/67 98 06/12/19 02:00 98 06/12/19 00:00 20 06/11/19 23:57 98.1 F 69 20 110/62 98 06/11/19 22:00 96 06/11/19 20:11 78 118/87 06/11/19 20:00 98.1 F 78 20 118/87 96 06/11/19 18:52 82 20 95 06/11/19 18:00 97 06/11/19 17:03 79 20 97 06/11/19 16:18 98 F 76 20 98/58 97 Home Medications Medication Instructions Recorded Confirmed Last Taken Type Albuterol Sulfate [Proair Hfa] 2 puffs PO BID 06/08/19 06/08/19 06/08/19 History Clonazepam [Klonopin] 0.5 mg PO BID 06/08/19 06/08/19 06/08/19 History Fluoxetine HCl [Prozac] 80 mg PO DAILY 06/08/19 06/09/19 06/08/19 History Gabapentin 600 mg PO TID 06/08/19 06/09/19 06/08/19 History OLANZapine [Zyprexa] 20 mg PO DAILY 06/08/19 06/09/19 06/08/19 History Metformin HCl 500 mg 500 mg PO DAILY 06/09/19 06/09/19 06/08/19 History [Glucophage 500 MG] Naproxen 500 mg [Naprosyn 500 500 mg PO TID 06/09/19 06/09/19 06/08/19 History MG] Pantoprazole 20 mg [Protonix 40 mg PO DAILY 06/09/19 06/09/19 06/08/19 History 20MG Tablet] Current Medications Generic Name Dose Route Start Last Admin Trade Name Freq PRN Reason Stop Dose Admin Acetaminophen 650 mg 06/09/19 00:31 06/11/19 20:15 Tylenol 325 Mg PO 07/09/19 00:30 650 mg Q4H PRN PRN Administration PAIN AND/OR FEVER Al Hydrox/Mg Hydrox/Simethicone 30 ml 06/09/19 00:31 Maalox Es 30 Ml Unit Dose PO 07/09/19 00:30 Q4H PRN PRN INDIGESTION Albuterol Sulfate 2 puff 06/09/19 07:00 Proventil Common Canister IH 07/09/19 06:59 Q4HPRN PRN SHORTNESS OF BREATH Albuterol/Ipratropium 3 ml 06/09/19 07:00 06/11/19 15:50 Duoneb 0.5-3 Mg/3 Ml Neb IH 07/09/19 06:59 3 ml Q4HPRN PRN Administration SHORTNESS OF BREATH/WHEEZING Aspirin 325 mg 11/29/19 10:00 06/12/19 10:18 Ecotrin 325 Mg PO 07/09/19 09:59 325 mg DAILY AMANDA Administration Atenolol 100 mg 06/09/19 11:45 06/12/19 10:17 Tenormin 50 Mg PO 07/09/19 11:44 100 mg BID AMANDA Administration Clonazepam 0.5 mg 06/09/19 11:30 06/12/19 10:19 Klonopin 0.5 Mg PO 07/09/19 11:29 0.5 mg BID AMANDA Administration Enoxaparin Sodium 40 mg 06/10/19 10:00 06/12/19 10:22 Enoxaparin Sodium SQ 07/10/19 09:59 40 mg DAILY AMANDA Administration Famotidine 20 mg 06/09/19 22:00 06/12/19 10:19 Pepcid 20 Mg PO 07/09/19 21:59 20 mg BID AMANDA Administration Fluoxetine HCl 80 mg 06/09/19 12:15 06/12/19 10:17 Prozac 20 Mg PO 07/09/19 12:14 80 mg DAILY AMANDA Administration Furosemide 20 mg 06/09/19 10:00 06/12/19 10:19 Lasix 20 Mg/2 Ml IV 07/09/19 09:59 20 mg BID DIURETIC AMANDA Administration Gabapentin 600 mg 06/09/19 15:00 06/12/19 10:18 Neurontin 300 Mg PO 07/09/19 12:14 600 mg TID AMANDA Administration Ceftriaxone Sodium/Dextrose 1 g in 50 mls @ 100 mls/hr 06/09/19 10:00 10:17 Rocephin 1 Gm-D5w 50 Ml Bag IV 07/09/19 09:59 100 mls/hr Q24H10 AMANDA Administration Insulin Human Regular 0 unit 06/09/19 00:31 06/10/19 21:28 Novolin R SQ 07/09/19 00:30 3 unit PRN PRN Administration HYPERGLYCEMIA Magnesium Hydroxide 30 - 60 ml 06/09/19 00:31 Milk Of Magnesia 30 Ml PO 07/09/19 00:30 QDP PRN CONSTIPATION Morphine Sulfate 2 - 8 mg 06/09/19 01:44 06/12/19 08:18 Morphine Sulfate 2 Mg Inj IV 06/14/19 01:43 2 mg PRN PRN Administration PAIN Nitroglycerin 0.4 mg 06/09/19 00:31 Nitrostat 0.4 Mg Tablet SL 07/09/19 00:30 .Q5MIN PRN CHEST PAIN Olanzapine 20 mg 06/09/19 12:15 06/12/19 10:18 Zyprexa 5mg Tablet PO 07/09/19 11:38 20 mg DAILY AMANDA Administration Ondansetron HCl 4 mg 06/09/19 00:31 Zofran 4 Mg/2 Ml Vial IV 07/09/19 00:30 Q4H PRN PRN NAUSEA/VOMITING Pantoprazole Sodium 40 mg 06/09/19 11:45 06/12/19 10:17 Protonix 40mg Tablet PO 07/09/19 11:44 40 mg DAILY AMANDA Administration Fluticasone/Salmeterol 2 puff 06/09/19 07:00 06/12/19 06:56 Advair Hfa 115/21 Common Canister* IH 07/09/19 06:59 2 puff BIDRT AMANDA Administration Senna/Docusate Sodium 2 udtab 06/09/19 00:31 Senokot-S Tablet PO 07/09/19 00:30 BID PRN PRN CONSTIPATION Sodium Chloride 10 ml 06/10/19 14:00 06/12/19 02:16 Sodium Chloride 0.9% 10 Ml Flush Syringe IV 07/10/19 13:59 10 ml Q8HT AMANDA Administration Tizanidine HCl 4 mg 06/09/19 15:00 06/12/19 10:17 Zanaflex 4 Mg PO 07/09/19 14:59 4 mg TID AMANDA Administration Discontinued Medications Generic Name Dose Route Start Last Admin Trade Name Freq PRN Reason Stop Dose Admin Albuterol/Ipratropium 3 ml 06/09/19 00:31 Duoneb 0.5-3 Mg/3 Ml Neb IH 07/09/19 00:30 Q4HPRN PRN SHORTNESS OF BREATH/WHEEZING Aspirin 324 mg 06/08/19 19:18 06/08/19 20:02 Baby Aspirin 81 Mg Chew PO 06/08/19 19:19 Not Given STAT ONE Enoxaparin Sodium 40 mg 06/09/19 10:22 06/09/19 15:16 Enoxaparin Sodium SQ 06/09/19 10:23 40 mg STAT ONE Administration Fluoxetine HCl 80 mg 06/10/19 10:00 Prozac 20 Mg PO 07/10/19 09:59 DAILY AMANDA Furosemide 40 mg 06/08/19 19:18 06/08/19 19:57 Lasix 40 Mg/4 Ml IV 06/08/19 19:19 40 mg STAT ONE Administration Furosemide Confirm 06/08/19 19:54 Lasix 40 Mg/4 Ml Administered 06/08/19 19:55 Dose 40 mg .ROUTE .STK-MED ONE Gabapentin 800 mg 06/09/19 11:45 Neurontin 400 Mg PO 07/09/19 11:44 TID AMANDA Sodium Chloride 1,000 mls @ 50 mls/hr 06/08/19 19:30 06/08/19 19:57 Sodium Chloride 0.9% 1000 Ml IV 07/08/19 19:29 50 mls/hr .Q20H AMANDA Administration Ceftriaxone Sodium/Dextrose 1 g in 50 mls @ 100 mls/hr 06/08/19 22:35 23:31 Rocephin 1 Gm-D5w 50 Ml Bag IV 06/08/19 23:04 Infused STAT STA Infusion Ceftriaxone Sodium/Dextrose Confirm 06/08/19 22:39 Rocephin 1 Gm-D5w 50 Ml Bag Administered 06/08/19 22:40 Dose 1 g in 50 mls @ ud IV .STK-MED ONE Sodium Chloride Confirm 06/08/19 19:54 Sodium Chloride 0.9% 1000 Ml Administered 06/08/19 19:55 Dose 1,000 mls @ ud .ROUTE .STK-MED ONE Sodium Chloride 500 mls @ 20 mls/hr 06/09/19 00:31 06/11/19 08:08 Sodium Chloride 0.9% 500 Ml IV 07/09/19 00:30 Not Given .Q24H AMANDA Sodium Chloride Confirm 06/09/19 00:46 Sodium Chloride 0.9% 1000 Ml Administered 06/09/19 00:47 Dose 1,000 mls @ ud .ROUTE .STK-MED ONE Magnesium Sulfate/Dextrose 100 mls @ 100 mls/hr 06/09/19 11:45 06/09/19 14:52 Magnesium 1 Gm / 100 Ml D5w IV 06/09/19 13:44 100 mls/hr Q1H AMANDA Administration Methylprednisolone Sodium Succinate 40 mg 06/09/19 10:00 06/09/19 22:18 Solu-Medrol 40 Mg IV 07/09/19 09:59 40 mg BID AMANDA Administration Morphine Sulfate 8 mg 06/08/19 20:11 06/08/19 20:27 Morphine Sulfate 10 Mg/Ml IV 06/08/19 20:12 8 mg STAT ONE Administration Morphine Sulfate Confirm 06/08/19 20:25 Morphine Sulfate 10 Mg/Ml Administered 06/08/19 20:26 Dose 10 mg .ROUTE .STK-MED ONE Morphine Sulfate 8 mg 06/08/19 23:55 06/09/19 02:16 Morphine Sulfate 10 Mg/Ml IV 06/08/19 23:56 Not Given STAT ONE Morphine Sulfate Confirm 06/09/19 00:18 Morphine Sulfate 10 Mg/Ml Administered 06/09/19 00:19 Dose 10 mg .ROUTE .STK-MED ONE Nitroglycerin 0.4 mg 06/08/19 19:18 06/08/19 20:01 Nitrostat 0.4 Mg (Ed) SL 06/08/19 19:19 Not Given STAT ONE Olanzapine 20 mg 06/09/19 11:39 Zyprexa 5mg Tablet PO 07/09/19 11:38 QDP PRN Ondansetron HCl 4 mg 06/08/19 20:12 06/08/19 20:27 Zofran 4 Mg/2 Ml Vial IV 06/08/19 20:13 4 mg STAT ONE Administration Ondansetron HCl Confirm 06/08/19 20:24 Zofran 4 Mg/2 Ml Vial Administered 06/08/19 20:25 Dose 4 mg .ROUTE .STK-MED ONE Ondansetron HCl 4 mg 06/08/19 23:55 06/09/19 02:16 Zofran 4 Mg/2 Ml Vial IV 06/08/19 23:56 Not Given STAT ONE Tuberculin PPD 5 unit 11/29/19 10:21 Aplisol ID 06/09/19 10:22 STAT ONE Intake & Output (Last 24 hours) 06/10/19 06/11/19 06/12/19 06/13/19 11:59 11:59 11:59 11:59 Intake Total 1160 1080 1280 Output Total 2950 Balance -1790 1080 1280 Weight 142.3 kg 143.4 kg 136.4 kg Laboratory Results (Last 24 hours) 06/12/19 06/12/19 04:53 04:53 WBC 11.6 H RBC 4.16 Hgb 12.0 L Hct 39.1 L MCV 94.0 MCH 28.8 MCHC 30.7 L RDW 14.3 H Plt Count 212 MPV 10.7 H Sodium 141 Potassium 4.3 Chloride 98 Carbon Dioxide 38 H Anion Gap 9.6 BUN 22 H Creatinine 0.89 Estimated GFR > 60.0 Glucose 96 Calcium 8.6 Total Bilirubin 0.40 AST 20 ALT 26 Alkaline Phosphatase 69 Serum Total Protein 7.3 Albumin 4.1 Orders (Last 24 hours) Category Date Time Status CBC Routine Lab 06/12/19 04:53 Completed CMP Routine Lab 06/12/19 04:53 Completed EKG DAILY RT 06/12/19 05:00 Completed Patient Care Notes (Last 24 hours) 06/11/19 17:08 Respiratory Note by Caro Calix 1600 PT AMBULATED WITH 3LPM O2 N/C 1610FT. SPO2 91-93%. Initialized on 06/11/19 17:08 - END OF NOTE patient will require 3 liters of oxygen per nasal cannula 24 hours a day. - Vitals & Intake/Output Vital Signs: Vital Signs Temperature 99.0 F 06/12/19 11:34 Pulse Rate 83 06/12/19 11:34 Respiratory Rate 26 H 06/12/19 11:34 Blood Pressure 129/64 06/12/19 11:34 O2 Sat by Pulse Oximetry 96 06/12/19 11:34 Oxygen-Last Documented O2 Percentage 3 Liters = 32% Intake & Output: Intake & Output 06/10/19 06/11/19 06/12/19 06/13/19 11:59 11:59 11:59 11:59 Intake Total 1160 1080 1280 Output Total 2950 Balance -1790 1080 1280 Weight 142.3 kg 143.4 kg 136.4 kg - Lab Result Diagrams: 06/12/19 04:53 06/12/19 04:53 Lab Results-Last 24 Hrs: Date 06/11/19 Date 06/11/19 Time 22:00 Time 16:10 Accucheck Value: 134 Accucheck Value: 97 Accucheck Value: 129 Accucheck Value: 102 Lab Results-Last 24 Hours 06/12/19 06/12/19 Range/Units 04:53 04:53 WBC 11.6 H (4.0-10.5) K/mm3 RBC 4.16 (4.1-5.6) M/mm3 Hgb 12.0 L (12.5-18.0) gm/dl Hct 39.1 L (42-50) % MCV 94.0 (78-100) fl MCH 28.8 (26-32) pg MCHC 30.7 L (32-36) g/dl RDW 14.3 H (11.5-14.0) % Plt Count 212 (150-450) K/mm3 MPV 10.7 H (6-9.5) fl Sodium 141 (137-145) mmol/L Potassium 4.3 (3.5-5.1) mmol/L Chloride 98 (98-107) mmol/L Carbon Dioxide 38 H (22-30) mmol/L Anion Gap 9.6 (5-15) MEQ/L BUN 22 H (9-20) mg/dL Creatinine 0.89 (0.66-1.25) mg/dL Estimated GFR > 60.0 ML/MIN Glucose 96 (74-106) mg/dL Calcium 8.6 (8.4-10.2) mg/dL Total Bilirubin 0.40 (0.2-1.3) mg/dL AST 20 (17-59) U/L ALT 26 (0-50) U/L Alkaline Phosphatase 69 (38-126) U/L Serum Total Protein 7.3 (6.3-8.2) g/dL Albumin 4.1 (3.5-5.0) g/dL Micro Results-Entire Visit: ucheck Date 06/11/19 Date 06/11/19 Time 22:00 Time 16:10 Accucheck Value: 134 Accucheck Value: 97 Accucheck Value: 129 Accucheck Value: 102 - Procedures and Test Procedures and Tests throughout Hospitalization: Therapy Orders & Screens 06/09/19 00:31 EKG Q8HX2,QAMX3,PRN Comment: 06/09/19 01:03 Oxygen Nasal Cannula 3 lpm Comment: Diagnosis: CHest pain;exacerbation COPD; Hx CHF 06/09/19 01:06 Respiratory Therapy Assessment DAILY Comment: Diagnosis: CHest pain;exacerbation COPD; Hx CHF 06/09/19 03:30 EKG ROUTINE Comment: Diagnosis: R/o Chest pain, COPD Exac. 06/09/19 07:00 Peak Expiratory Flow Rate ONCE Comment: Reason For Exam: Diagnosis: R/o Chest pain, COPD Exac. 06/10/19 05:00 EKG DAILY Comment: Diagnosis: R/o Chest pain, COPD Exac. 06/11/19 05:00 EKG DAILY Comment: Diagnosis: R/o Chest pain, COPD Exac. 06/11/19 08:48 Qualify for Home Oxygen ROUTINE Comment: Diagnosis: R/o Chest pain, COPD Exac. 06/12/19 05:00 EKG DAILY Comment: Diagnosis: R/o Chest pain, COPD Exac. Discharge Exam General Appearance: no apparent distress, alert Neurologic Exam: alert, oriented x 3, cooperative, normal mood/affect, nml cerebellar function, sensation nml, No motor deficits Eye Exam: PERRL, EOMI, eyes nml inspection Ears, Nose, Throat Exam: normal ENT inspection, pharynx normal, moist mucous membranes Neck Exam: normal inspection, non-tender, supple, full range of motion Respiratory Exam: normal breath sounds, lungs clear, No respiratory distress Cardiovascular Exam: regular rate/rhythm, normal heart sounds Gastrointestinal/Abdomen Exam: soft, No tenderness, No mass Male Genitalia Exam: deferred Rectal Exam: deferred Back Exam: normal inspection, normal range of motion, No CVA tenderness, No vertebral tenderness Extremity Exam: normal inspection, normal range of motion Skin Exam: normal color, warm, dry Final Diagnosis/Problem List - Final Discharge Diagnosis/Problem (1) Acute exacerbation of chronic obstructive airways disease Current Visit: Yes Status: Resolved Code(s): J44.1 - CHRONIC OBSTRUCTIVE PULMONARY DISEASE W (ACUTE) EXACERBATION (2) Lung nodules Current Visit: Yes Status: Chronic (3) Congestive heart failure Current Visit: Yes Status: Chronic Code(s): I50.9 - HEART FAILURE, UNSPECIFIED (4) Hypoxia Current Visit: Yes Status: Chronic Priority: High Code(s): R09.02 - HYPOXEMIA (5) Respiratory distress Current Visit: Yes Status: Resolved Code(s): R06.00 - DYSPNEA, UNSPECIFIED - Discharge Discharge Date: 06/12/19 Disposition: Home, Self-Care Condition: Stable Prescriptions: New Cephalexin Mh 500 mg [Keflex 500 mg] 500 mg PO QID #30 capsule Continue Atenolol 100 mg PO BID Furosemide 20 mg PO DAILY Famotidine 20 mg [Pepcid 20 MG] 20 mg PO BID Tizanidine HCl 4 mg [Zanaflex 4 MG] 4 mg PO TID Fluticasone/Vilanterol [Breo Ellipta 100-25 Mcg INH] 1 each IH DAILY OLANZapine [Zyprexa] 20 mg PO DAILY Gabapentin 600 mg PO TID Fluoxetine HCl [Prozac] 80 mg PO DAILY Clonazepam [Klonopin] 0.5 mg PO BID Albuterol Sulfate [Proair Hfa] 2 puffs PO BID Pantoprazole 20 mg [Protonix 20MG Tablet] 40 mg PO DAILY Naproxen 500 mg [Naprosyn 500 MG] 500 mg PO TID Metformin HCl 500 mg [Glucophage 500 MG] 500 mg PO DAILY Follow up with: ADAM GRUBER [ACTIVE STAFF] - 1 Week JOVANY CABEZAS MD [Primary Care Provider] - 06/19/19 10:30 am (AT [facility])
[2019-06-12 17:10] VITALS: BP 120/78; PULSE 77; O2SAT 94
--- NOTE | 2019-06-13 14:00 | ECHO ---
DATE OF PROCEDURE: 06/09/2019 CLINICAL INFORMATION: Congestive heart failure. The M-mode 2D, and Doppler echocardiogram including color flow Doppler shows the left ventricle is mildly dilated with a dimension of 5.9 cm. No thrombus is present. The septal wall thickness is 0.7 cm. The left ventricular posterior wall thickness is 0.9 cm. Left ventricular systolic function is mildly decreased with an ejection fraction calculated at 39%. The right ventricle is not well visualized. The left atrium is normal at 3.8 cm. The interatrial septum is intact. The right atrium is not well visualized. The aortic valve is not well visualized. The mitral valve appears normal. There is mild tricuspid regurgitation. The right ventricular systolic pressure is elevated at 31 mm of Mercury. The pulmonic valve is not well visualized. The aortic root is normal at 2.7 cm. There is no pericardial effusion present. The mitral valve E to A inflow velocity ratio is decreased at 0.9. IMPRESSION: 1) MILD TO MODERATE DECREASE IN LEFT VENTRICULAR SYSTOLIC FUNCTION. 2) EVIDENCE OF IMPAIRED LEFT VENTRICULAR RELAXATION. 3) MILD DILATATION OF THE LEFT VENTRICLE. 4) MILD TRICUSPID REGURGITATION. 5) MILD PULMONARY HYPERTENSION.
== END 2019-06-12 17:18 | disposition home or self-care (01) | DRG 192 ==
LOC: ED 19:08 → MED SURG 06-09 00:25 → OBSVTOIN 06-09 10:19
PROVIDERS: ADMIT General Practice; ATTEND General Practice
DX: J44.1 Chronic obstructive pulmonary disease with (acute) exacerbation (principal); R07.9 Chest pain, unspecified; R06.03 Acute respiratory distress; R91.8 Other nonspecific abnormal finding of lung field; E11.9 Type 2 diabetes mellitus without complications; I50.9 Heart failure, unspecified; R42 Dizziness and giddiness; R09.02 Hypoxemia; R11.2 Nausea with vomiting, unspecified; I89.0 Lymphedema, not elsewhere classified; D64.9 Anemia, unspecified; F32.9 Major depressive disorder, single episode, unspecified; Z79.899 Other long term (current) drug therapy
CPT/HCPCS: 36000; 36415; 71260; 80048; 80053; 80061; 82150; 82607; 82962; 83036; 83540; 83550; 83605; 83690; 83721; 83735; 83880; 84484; 85025; 85027; 85379; 93005; 93041; 93268; 93306; 94150; 94640; 94760; 96365; 96374; 96375; 99285; J0696; J1650; J1940; J2270; J2405; J2920; J3475; A9270-GY